=== PATIENT | female | born 1975 | race Caucasian/White ===

== ENCOUNTER → 2017-04-08 | Outpatient (CLI) | payer OTHER ==
[2017-04-08 16:43] LABS: BASO % 0.4 %; BASO ABS # 0.03 K/uL (0-0.2); EOS % 3.8 %; EOS ABS # 0.31 K/uL (0-0.5); HEMATOCRIT 41.9 % (37-47); HEMOGLOBIN 15.1 g/dL (12.0-16.0); IG# 0.03 K/uL (0.00-0.02); LYMPH % 20.3 %; LYMPH ABS # 1.67 K/uL (1.2-3.4); MEAN CELL VOLUME 89.7 fL (80-100); MEAN CORPUSCULAR HEMOGLOBIN 32.3 pg (25-34); MEAN PLATELET VOLUME 10.8 fL (7.4-10.4); MONO % 10.4 %; MONO ABS # 0.85 K/uL (0.11-0.59); NEUT % 64.7 %; NEUT ABS # 5.32 K/uL (1.4-6.5); PLATELET COUNT 368 K/uL (130-400); RED CELL DISTRIBUTION WIDTH CV 14.1 % (11.5-14.5); RED CELL DISTRIBUTION WIDTH SD 46.2 fL (36.4-46.3); WHITE BLOOD COUNT 8.21 K/uL (4.8-10.8)
== END | disposition home or self-care (01) ==
LOC: C.LAB1850 14:35
PROVIDERS: ATTEND Obstetrics & Gynecology
DX: O09.511 Supervision of elderly primigravida, first trimester (principal); Z3A.00 Weeks of gestation of pregnancy not specified

== ENCOUNTER → 2017-10-01 | Outpatient (CLI) | payer OTHER | END | disposition home or self-care (01) | LOC: C.LABSPEC 18:03 | PROVIDERS: ATTEND Obstetrics & Gynecology | DX: O09.513 Supervision of elderly primigravida, third trimester (principal); Z3A.00 Weeks of gestation of pregnancy not specified ==

== ENCOUNTER 2017-10-17 12:20 | Inpatient (IN) | payer OTHER ==
[~2017-10-17] VITALS: Ht 167.6 cm; Wt 89.5 kg
[2017-10-17] MEDS ORDERED: LACTATED RINGER'S 1000ML 1,000 ML IV PRN (13:09)
[2017-10-17 13:34] LABS: HEMATOCRIT 34.1 % (37-47); HEMOGLOBIN 11.5 g/dL (12.0-16.0); MEAN CELL VOLUME 82.2 fL (80-100); MEAN CORPUSCULAR HEMOGLOBIN 27.7 pg (25-34); MEAN CORPUSCULAR HGB CONC 33.7 g/dl (32-36); MEAN PLATELET VOLUME 10.6 fL (7.4-10.4); PLATELET COUNT 358 K/uL (130-400); RED CELL DISTRIBUTION WIDTH CV 15.4 % (11.5-14.5); RED CELL DISTRIBUTION WIDTH SD 45.8 fL (36.4-46.3)
[2017-10-17] MEDS ORDERED: BUPIVACAINE 0.25% 30 ML VIAL ONE (13:46)
[2017-10-17] MEDS ORDERED: EpHEDrine SULFATE INJ 50 MG/ML AMP ONE (13:46)
[2017-10-17] MEDS ORDERED: FENTANYL CITRATE INJ 50 MCG/1 ML 2 ML VIAL ONE (13:47)
[2017-10-17] MEDS ORDERED: FENTANYL 2MCG/ML ROPIV 1.25MG/ML 100ML BAG ONE (13:47)
[2017-10-17] MEDS ORDERED: PATIENT'S ALLERGY INFO NEEDS ENTERED SCH (14:00)
[2017-10-17] MEDS: LACTATED RINGER'S 1000ML 1,000 ML IV SCH ×2 (14:18→19:25)
[2017-10-17] MEDS ORDERED: LACTATED RINGER'S 1000ML 500 ML IV PRN ×2 (14:20→15:19)
[2017-10-17] MEDS ORDERED: NALOXONE HCL INJ 1 MG in SODIUM CHLORIDE 0.9% 1000ML 1,000 ML IV PRN (14:20)
[2017-10-17] MEDS ORDERED: PRENTAB65 PO (14:24)
[2017-10-17] MEDS ORDERED: NALOXONE HCL INJ 0.4 MG/1 ML VIAL/CARP IV PRN (14:30)
[2017-10-17] MEDS ORDERED: EpHEDrine SULFATE INJ 50 MG/ML AMP IV PRN (14:30)
[2017-10-17] MEDS ORDERED: NALBUPHINE HCL INJ 10 MG/ML 1ML AMP IV PRN (14:30)
[2017-10-17] MEDS ORDERED: DiphenhydrAMINE HCL 50 MG/ML VIAL IV PRN (14:30)
[2017-10-17] MEDS ORDERED: ONDANSETRON INJ 2 MG/ML 2 ML VIAL IV PRN (14:30)
[2017-10-17] MEDS ORDERED: CYAN100073 (14:44)
[2017-10-17] MEDS ORDERED: [UNRECOGNIZED DRUG - CODE] (14:44)
[2017-10-17 14:45] VITALS: Ht 167.6 cm; Wt 89.5 kg
[2017-10-17] MEDS: FENTANYL 2MCG/ML ROPIV 1.25MG/ML 100ML BAG EPI PRN ×2 (15:12→19:01)
[2017-10-17] MEDS ORDERED: OXYTOCIN 30 UNITS/500ML NSS IV PRN (15:30)
[2017-10-18] VITALS (7 sets, daily range): BP systolic 105–126; BP diastolic 65–81; PULSE 88–109; TEMP 36.6–37.2; O2SAT 95
[2017-10-18] MEDS: LACTATED RINGER'S 1000ML 1,000 ML IV SCH (00:27)
[2017-10-18] MEDS: FENTANYL 2MCG/ML ROPIV 1.25MG/ML 100ML BAG EPI PRN (00:59)
[2017-10-18] MEDS ORDERED: BUPIVACAINE 0.25% 30 ML VIAL ONE (01:30)
[2017-10-18] MEDS ORDERED: FENTANYL CITRATE INJ 50 MCG/1 ML 2 ML VIAL ONE (01:31)
--- NOTE | 2017-10-18 01:44 | Anesthesiology Progress Note ---
Anesthesia Progress Note Date of Service Oct 18, 2017. Progress Notes Pt is currently fully dilated. She states having pain in her genitalia area during contractions. I administered 100mcg of fentanyl and 5mL of 0.125% bupivacaine through her epidural. The patient states significant improvement in pain after epidural bolus. Pt with stable vital signs throughout.
[2017-10-18] MEDS ORDERED: METHYLERGONOVINE MALEATE 0.2 MG/ML AMP ONE (02:20)
[2017-10-18] MEDS ORDERED: ACETAMINOPHEN 325 MG TAB PO PRN (02:45)
[2017-10-18] MEDS ORDERED: OXYCODONE/ACETAMINOPHEN 5-325 TAB PO PRN (02:45)
[2017-10-18] MEDS ORDERED: METHYLERGONOVINE MALEATE 0.2 MG/ML AMP IM ONE (02:45)
[2017-10-18] MEDS ORDERED: LANOLIN OINT EXT PRN (02:45)
[2017-10-18] MEDS ORDERED: MISOPROSTOL 200 MCG TAB PR ONE (02:45)
[2017-10-18] MEDS ORDERED: OXYTOCIN 30 UNITS/500ML NSS IV PRN (02:45)
[2017-10-18] MEDS ORDERED: HYDROCORTISONE ACETATE 25 MG SUPP PR PRN (02:45)
[2017-10-18] MEDS ORDERED: SUPERCREAM 0.870 % 15GM JAR EXT PRN (02:45)
[2017-10-18] MEDS ORDERED: CEFAZOLIN IV 2,000 MG in SYRINGE 0 ML IV ONE (03:30)
[2017-10-18] MEDS: IBUPROFEN 600 MG TAB PO PRN ×3 (04:59→20:11)
--- NOTE | 2017-10-18 05:05 | DELIVERY SUMMARY ---
DATE OF OPERATION: 10/18/2017 PREOPERATIVE DIAGNOSES: 1. Intrauterine at 39 and 0/7 weeks. 2. Advanced maternal age. 3. Active labor. POSTOPERATIVE DIAGNOSES: 1. Intrauterine at 39 and 0/7 weeks. 2. Advanced maternal age. 3. Active labor. 4. Thin meconium. ANESTHESIA: Epidural. ESTIMATED BLOOD LOSS: 450 mL. PROCEDURE IN DETAIL: The patient presented to labor and delivery 300% to 400%, -2, and actively silvestre. She was very uncomfortable and was admitted. She underwent an epidural anesthetic. When she was comfortable with the epidural anesthetic, her contraction spaced, so Pitocin augmentation was initiated. She then subsequently underwent at 5 cm dilated an amniotomy for thin green meconium. She then progressed with Pitocin augmentation to complete complete and +2 station. The patient pushed effectively for a little over an hour and then her pain management became so poor that she was no longer able to push effectively. Her epidural was redosed. After her epidural was redosed, she was able to push effectively again and pushed effectively to achieve to +4 to +5 with a vast majority of caput and part of the head . Unfortunately, she experienced pain issues again and was unable to effectively push at that time. I offered an episiotomy thinking if we could make the opening a little bigger with the pushing, it would help, but she declined this. She pushed over another contraction with extremely poor effort and was very uncomfortable. I offered the patient outlet vacuum and she agreed. Verbal consent was obtained by the patient. The vacuum was applied x1 and with 1 rib puller the next contraction, the vertex was delivered. It was an SHOBHA presentation. A loose nuchal cord x2 was reduced. The nose and mouth were bulb suctioned and the rest of the was then delivered without difficulty. Although the baby was floppy, it had have respiratory effort and attempt at crying and so the nose and mouth were bulb suctioned and the infant was placed on the maternal abdomen for drying and attention. At approximately 1 minute of life, the cord was clamped and cut. Cord gases and blood were obtained. Placenta was delivered spontaneously intact with a 3-vessel cord. Cervix, sulci, and rectum were examined and found to be intact. A second-degree perineal laceration was repaired with 3-0 Vicryl in a normal standard fashion. Hemostasis was challenging on this patient secondary to initial atony and was finally controlled with dilute Pitocin, fundal massage, IM Methergine, and 600 mcg of Cytotec. Estimated blood loss was between 450 and 500 mL. Apgars were 8 and 9. Mother and baby were doing well at the end of the delivery. I attest to the content of the Intraoperative Record and any orders documented therein. Any exception s are noted below.
--- NOTE | 2017-10-18 08:08 | Anesthesia Procedure Note ---
Anesthesia Epidural Removal Nt Date & Time Oct 18, 2017 at 08:08 Vital Signs Pain Intensity: 0.0 Vital Signs Past 12 Hours Date Time Temp Pulse Resp B/P (MAP) Pulse Ox O2 Delivery O2 Flow Rate FiO2 10/18/17 05:05 37.2 109 20 126/78 (94) 95 Room Air 10/18/17 05:05 95 Room Air Notes Mental Status: alert / awake / arousable, participated in evaluation Nausea / Vomiting: adequately controlled Pain: adequately controlled Airway Patency, RR, SpO2: stable & adequate BP & HR: stable & adequate Hydration State: stable & adequate Neuraxial Anesthesia: was administered Anesthetic Complications: no major complications apparent, pt satisfied with anesthetic care Epidural: removed without complications, with tip intact
[2017-10-18] MEDS: PRENATAL VITAMIN TAB PO SCH (08:13)
[2017-10-18] MEDS: BENZOCAINE 20% AER SPR 82.5 GM CAN EXT PRN (08:16)
--- NOTE | 2017-10-18 11:08 | Discharge Instructions ---
Discharge Instructions Date of Service Oct 18, 2017. Admission Reason for Admission: R/O Labor Discharge Discharge Diagnosis / Problem: Discharge Goals Goal(s): Routine recovery after delivery Medications Continue Dispensed Medications: supercream, dermaplast, tucks Activity Recommendations Activity Limitations: per Instructions/Follow-up section . Instructions / Follow-Up Instructions / Follow-Up ACTIVITY RECOMMENDATIONS: * Gradual return to full activity over the next 2-3 weeks. * No lifting - nothing heavier than baby over the next 2-3 weeks. * Do not engage in vigorous exercise, sexual activity or sports until cleared by your physician. * Do not drive or operate any motorized equipment until cleared by your physician. * You may shower/bathe daily. MEDICATIONS: For discomfort or pain, you may use Acetaminophen (Tylenol), Ibuprofen (Advil), or Naproxen (Aleve) following the package directions. For constipation you may use Colace following the package directions. BREAST CARE: If you are not breast feeding: * Wear a supportive bra 24 hours a day for one to two weeks. * Avoid stimulating your breasts and nipples as much as possible during the first few weeks after delivery. * When taking a shower, have the warm water hit your back, not breasts. * When your breasts feel full, apply ice packs. Usually three to four times a day helps ease the discomfort. * Take a mild pain medication (Tylenol / Motrin) when you are uncomfortable. If breast feeding: * Use breast milk to lubricate nipples. Lansinoh cream may be used for sore nipples. You do not need to remove cream prior to breast feeding. If using a different brand of cream, check the label for directions regarding removal of cream prior to nursing. * Wear a supportive bra. * If having problems with breasts or breast feeding, call a gis consultant or your health care provider. EPISIOTOMY CARE: After delivery, if you have an episiotomy (stitches), the following steps will ease discomfort and aid healing. * For the first 24 hours after delivery, place ice packs next to your episiotomy to help reduce swelling. * After the first 24 hour-period, sitz baths, either portable or in the tub, are suggested. A shower with a shower arm sprayed over the episiotomy may be comforting. * Kira care should be done after each voiding and bowel movement. Squirt warm water from a plastic bottle over the perineum (region of the body between the anus and urinary opening) and pat dry. * Use Dermoplast to ease discomfort. Shake container. [place] directly over the episiotomy. Place a Tucks on a clean sanitary pad next to your episiotomy. SPECIAL CARE INSTRUCTIONS: When you are discharged from the hospital, it is important for you to follow the instructions listed below: * During the first week at home, you should be able to care for yourself and your baby. In addition, the usual light household activities are encouraged. * Limit your activities to the way you feel. Do not try to clean the house or move furniture. Be sensible. * If you actively engage in sports and have done so up until the time of your delivery, you may resume these activities as soon as you feel able. This may take up to one month or even longer. Use good judgment. * Continue to take your vitamins for at least six weeks after the of your baby. * Your diet need not be limited unless you were on a special diet before your delivery. Breast-feeding mothers need around 2500 calories per day and at least 64-80 ounces of fluid per day (8 to 10 glasses). * You should eat foods from the four major food groups. Crash diets or fad diets are to be avoided. Eating lean meats, fresh fruits and vegetables, low-fat dairy products, high fiber foods and a regular exercise program, will help you get back to your pre- weight without putting your health at risk. * Constipation is sometimes a problem after delivery. Take a mild laxative as needed. If breast feeding, Milk of Magnesia is acceptable to use. You may use a suppository or Fleets enema if no episiotomy. * A daily shower or tub bath is suggested. Be sure to thoroughly and gently dry the perineum. * A bloody vaginal discharge will usually continue until around four weeks post . A small amount of bleeding may continue for as long as six weeks. Vaginal discharge changes from the bright red bleeding after delivery to pink then brownish and finally yellowish-pink before becoming white and disappearing. * Bleeding may increase with activity. Your first period may come in 4-8 weeks. If you are breast feeding, your period may be delayed even longer. * [place] (sex) can begin whenever both you and your partner feel comfortable and do not have any form of genital infection. It is recommended that you wait at least six weeks for internal and external healing to occur. If you have questions, please talk to your health care practitioner. A condom should be used to prevent infection and . * Foreplay, gentle intercourse and lubrication is very important the first several times to prevent pain. A water-based lubricant such as K-Y jelly or Astroglide may be used. * If you have RH negative blood and your baby is RH positive, you will receive RHOGAM by injection prior to discharge. The nurse will give you a card to keep with you that has the date and place that you received RHOGAM after delivery. * During your care, you had a Rubella screen done to check for the presence of rubella antibodies in your blood. If your test was negative, you will receive a Rubella vaccine prior to discharge. This vaccine may cause a fever, soreness at the injection site and flu-like symptoms. If these symptoms persist, notify your health care practitioner. is not advised for one month after a Rubella vaccine. * Verbalizes understanding of car seat law as reviewed with patient nursing. * Car Seat hand-out given and reviewed with patient by nursing. * Shaken baby information reviewed with patient by nursing. Call you doctor if: * Heavy bleeding (saturating several pads an hour) or passing clots the size of your fist. * A fever >101 degrees F (38.3 degrees C) on two occasions four hours apart and /or chills. * Unusual pain in the pelvic or vaginal areas. * "Baby Blues" lasting longer than two weeks. If you have any questions or concerns, call your health care practitioner at . FOLLOW UP VISIT: * Please call the office at to schedule a 6 week examination. It is important you keep this appointment. It is important for you to make arrangements for either yearly or twice yearly check-ups thereafter. Current Hospital Diet Patient's current hospital diet: Regular OB Diet Discharge Diet Recommended Diet: Regular OB Diet Pending Studies Studies pending at discharge: no Medical Emergencies . Who to Call and When: Medical Emergencies: If at any time you feel your situation is an emergency, please call [phone] immediately. . Non-Emergent Contact Non-Emergency issues call your: Real Estate Leasing Agent Call Non-Emergent contact if: temperature is above 100.5 . . "Provider Documentation" section prepared by Lew Still. . Resident Tracking Resident Involvement: Resident Care Provided Care Provided: Adult [facility] Medicine
[2017-10-19] MEDS: IBUPROFEN 600 MG TAB PO PRN ×3 (06:04→21:07)
[2017-10-19 06:39] LABS: HEMOGLOBIN 9.6 g/dL (12.0-16.0)
--- NOTE | 2017-10-19 06:53 | Progress Note ---
Subjective Oct 19, 2017. Subjective Comment: conversation w/ patient, physical exam Ambulation: ambulating normally Voiding: no voiding problems Passing Gas: Yes Diet Tolerance: Regular Diet no n/v Lochia: Moderate Feeding Type: Plan is to pump breast milk and bottle feed Pain: Improving /10 Review of Systems Constitutional: No fever, No chills, No sweats Respiratory: No cough, No sputum, No wheezing Cardiac: No chest pain, No palpitations Abdomen: No pain, No nausea, No vomiting, No diarrhea Female : No dysuria Objective Vital Signs Date Time Temp Pulse Resp B/P (MAP) Pulse Ox O2 Delivery O2 Flow Rate FiO2 10/18/17 23:25 36.6 88 16 119/77 (91) 95 Room Air 10/18/17 23:25 95 Room Air 10/18/17 20:00 36.8 90 18 125/81 (96) 95 Room Air 10/18/17 16:10 36.7 99 20 114/75 (88) 10/18/17 12:10 36.6 94 20 111/67 (82) 10/18/17 08:00 37.1 106 18 105/65 (78) 95 Room Air Physical Exam General Appearance: WELL-APPEARING, NO APPARENT DISTRESS Respiratory/Chest: chest non-tender, normal breath sounds Cardiovascular: regular rate, rhythm Abdomen: normal bowel sounds Fundus: Firm, Relation to Umbilicus (below) Extremities: non-tender, no calf tenderness Laboratory Results Last 24 Hours Test 10/19/17 05:47 Hemoglobin 9.6 g/dL Hematocrit 30.0 % Medications Current Inpatient Medications Medications (Trade) Dose Ordered Sig/Fran Route Start Time Stop Time Status Last Admin Dose Admin Oxytocin (Pitocin IV) 30 units UD PRN IV 10/18/17 02:45 11/17/17 02:44 Benzocaine (Dermoplast Aero Spr) 1 appln PRN PRN EXT 10/18/17 02:45 11/17/17 02:44 10/18/17 08:16 1 APPLN Cocaine HCl (Supercream 0.870% Cr) BID PRN EXT 10/18/17 02:45 11/01/17 02:44 Hydrocortisone Acetate (Anusol Hc Supp) [address] 10/18/17 02:45 11/17/17 02:44 Lanolin (Lanolin Oint) PRN PRN EXT 10/18/17 02:45 11/17/17 02:44 Prenat Multivit/ [place]/Iron/Folic Ac ( Vitamin Tab) 1 tab DAILY PO 10/18/17 08:00 11/17/17 07:59 10/18/17 08:13 1 TAB Ibuprofen (Motrin Tab) 600 mg Q4H PRN PO 10/18/17 02:45 11/17/17 02:44 10/19/17 06:04 600 MG Acetaminophen (Tylenol Tab) 650 mg Q6H PRN PO 10/18/17 02:45 11/17/17 02:44 10/18/17 08:14 650 MG Oxycodone/ Acetaminophen (Percocet 5-325mg Tab) 1 tab Q4H PRN PO 10/18/17 02:45 11/01/17 02:44 Diphtheria/ Pertussis/Tetanus Vacc (Adacel Inj) 0.5 ml ONCE ONCE IM. 10/19/17 09:00 10/19/17 09:01 Assessment and Plan Post- Day#: 1 Continue Routine Care: Resident Physician Supervision Note: I interviewed and examined the patient. Discussed with Dr. Still and agree with findings and plan as documented in the note. Any exceptions or clarifications are listed here: Baby is receiving antibiotics at this time. Documented By: France Abbott Diann 42 yo PPD1 s/p -AFVSS, Pt doing well resting comfortably -F/U CBC HGB 9.6 from 11.5 on admission appropriate for vaginal delivery no si/ sx of anemia -endorsed clots, continue to monitor for si/sx anemia -Plan is to breast feed -Tolerating regular diet, no n/v -Continue to encourage ambulation -Routine care Resident Tracking Resident Involvement: Resident Care Provided Care Provided: Adult Hospital Medicine
[2017-10-19 08:15] VITALS: BP 115/74; PULSE 98; TEMP 36.7; O2SAT 96
[2017-10-19] MEDS: PRENATAL VITAMIN TAB PO SCH (08:27)
[2017-10-19] MEDS ORDERED: DIPHTHERIA/TETANUS/PERTUSSIS 0.5 ML SYR/VIAL IM. ONE (09:00)
[2017-10-19 15:32] VITALS: BP 107/73; PULSE 94; TEMP 36.7; O2SAT 95
[2017-10-19 21:00] VITALS: BP 121/74; PULSE 76; TEMP 36.6
[2017-10-20 07:33] VITALS: BP 108/74; PULSE 90; TEMP 36.6
--- NOTE | 2017-10-20 08:12 | Progress Note ---
Subjective Oct 20, 2017. Subjective conversation w/ patient, physical exam Ambulation: ambulating normally Feeding Type: Breast Feeding Objective Vital Signs Date Time Temp Pulse Resp B/P (MAP) Pulse Ox O2 Delivery O2 Flow Rate FiO2 10/20/17 07:33 36.6 90 18 108/74 (85) Room Air 10/20/17 00:00 Room Air 10/19/17 21:00 36.6 76 18 121/74 (90) Room Air 10/19/17 15:32 36.7 94 18 107/73 (84) 95 Room Air 10/19/17 08:15 96 Room Air 10/19/17 08:15 36.7 98 18 115/74 (88) 96 Room Air Physical Exam General Appearance: WELL-APPEARING, NO APPARENT DISTRESS Fundus: Firm, Non-Tender Extremities: no calf tenderness Assessment and Plan Post- Day#: 2 Continue Routine Care: - doing well - desires d/c - instructions given - f/u in 6 weeks
[2017-10-20] MEDS: PRENATAL VITAMIN TAB PO SCH (08:40)
[2017-10-20] MEDS: IBUPROFEN 600 MG TAB PO PRN ×2 (08:42→18:47)
[2017-10-20 15:40] VITALS: BP 117/80; PULSE 94; TEMP 36.7
[2017-10-20] MEDS: BENZOCAINE 20% AER SPR 82.5 GM CAN EXT PRN (15:47)
[2017-10-20 20:20] VITALS: BP_DIAS 80; PULSE 94; TEMP 36.7
--- NOTE | 2017-10-25 08:19 | DISCHARGE SUMMARY ---
ADMISSION DIAGNOSES: 1. Intrauterine at 38 and 6/7 weeks. 2. Early labor. 3. AMA. DISCHARGE DIAGNOSES: 1. Intrauterine at 38 and 6/7 weeks. 2. Early labor. 3. AMA. 4. Maternal exhaustion secondary to pain. HISTORY OF PRESENT ILLNESS: The patient is a 42-year-old white female 3, para 0-0-2-0 with an intrauterine at 38 and 6/7 weeks, who presents in early labor with painful contractions. She had a gush of fluid at 5:30 a.m. and got her panties wet with a spot of pink-tinged blood. No further leaking. Good movement. She is quite uncomfortable. uncomplicated other than AMA with normal testing and normal echo. For the rest of patient's detailed history and physical, please see her history and her OB progress notes. ASSESSMENT: This is an IUP at 38 and 6/7 weeks in early labor. HOSPITAL COURSE: She was admitted and on admission she was 3 cm dilated, -2 station and actively silvestre. She was very uncomfortable. She underwent an epidural anesthetic. When she was comfortable, her contractions paced, so Pitocin was initiated. At 5 cm, she underwent an amniotomy for thin-green meconium and then progressed to complete and +2 station. The patient pushed effectively for a little over an hour and then her pain management came so poor that she was no longer able to effectively push. Her epidural was redosed. After epidural was redosed, she was able to effectively push again to achieve the +4, +5 station with the vast majority of caput and part of the head . Unfortunately, she experienced pain and she again was unable to effectively push that time. I offered an episiotomy which she declined. I offered vacuum assist, which she accepted. With 1 push and 1 pull, the baby was delivered in SHOBHA presentation, loose nuchal cord x2 was reduced. Please see the delivery note for the rest of the details of the delivery. The placenta was delivered spontaneously intact with a 3-vessel cord. A second-degree laceration was repaired. Hemostasis was achieved finally with dilute Pitocin, fundal massage, IM Methergine and 600 mg of Cytotec. Estimated blood loss 500 mL. Apgars 8 and 9. The rest of the patient's course was uncomplicated. She tolerated a regular diet, ambulated without difficulty, voided without difficulty, remained afebrile. She was discharged home on day #2. Her discharge H&H was 9.6 and 30.0.
== END 2017-10-20 20:20 | disposition home or self-care (01) | DRG 775 ==
LOC: C.LD 12:20 → C.OPB 12:20 → C.LD 13:12 → C.OPB 13:12 → C.OBG 10-18 04:57 → EDSTATUS 10-25 12:23
PROVIDERS: ADMIT Obstetrics & Gynecology; ATTEND Obstetrics & Gynecology
PROC: 0KQM0ZZ Repair Perineum Muscle, Open Approach (ICD-10-PCS; principal; 2017-10-18)
PROC: 10D07Z6 Extraction of Products of Conception, Vacuum, Via Natural or Artificial Opening (ICD-10-PCS; principal; 2017-10-18)
DX: O70.1 Second degree perineal laceration during delivery (principal); O69.81X0 Labor and delivery complicated by cord around neck, without compression, not applicable or unspecified; O77.0 Labor and delivery complicated by meconium in amniotic fluid; O09.523 Supervision of elderly multigravida, third trimester; Z3A.39 39 weeks gestation of pregnancy; Z37.0 Single live birth; Z87.59 Personal history of other complications of pregnancy, childbirth and the puerperium; Z88.5 Allergy status to narcotic agent